=== PATIENT | male | born 1980 ===

== ENCOUNTER 2017-06-16 08:28 | Emergency (ER) | payer OTHER ==
[2017-06-16 08:42] VITALS: BP 139/84
[2017-06-16] MEDS ORDERED: HYDROcodone/ACETAMIN 5-325 MG* 1 TAB PO ONE (09:02)
--- NOTE | 2017-06-16 09:08 | UC ---
Shoulder Pain HPI - HPI Summary HPI Summary: SLIPPED AND FELL WHILE WALKING HIS KIDS TO THE BUS STOP THIS MORNING. FELL ONTO LEFT SHOULDER. HAS SEVERE PAIN AND INABILITY TO MOVE LEFT ARM AT SHOULDER. DENIES HEAD INJURY. STATES IT IS MOSTLY HIS SHOULDER BUT ALSO HAS SOME NECK PAIN. NO CARLISLE, DIZZINESS, NAUSEA, VISUAL DISTURBANCE. - History of Current Complaint Chief Complaint: UCUpperExtremity Stated Complaint: LEFT SHOULDER/NECK INJURY Time Seen by Provider: 06/16/17 08:55 Hx Obtained From: Patient Onset/Duration: Sudden Onset, Lasting Hours, Still Present Timing: Constant Severity Initially: Severe Severity Currently: Severe Location Of Pain: Is Discrete @ - LEFT SHOULDER Pain Intensity: 10 Pain Scale Used: 0-10 Numeric Character: Sharp Aggravating Factor(s): Movement Alleviating Factor(s): Nothing Related History: Dominant Hand Right - Allergies/Home Medications Allergies/Adverse Reactions: Allergies Allergy/AdvReac Type Severity Reaction Status Date / Time citric acid Allergy Facial Verified 06/16/17 08:39 Redness/Flushing Home Medications: Home Medications Acetaminophen 650 mg PO 06/16/17 [History] PMH/Surg Hx/FS Hx/Imm Hx Previously Healthy: Yes - Surgical History Surgical History: None - Family History Known Family History: Negative: Hypertension - Social History Alcohol Use: None Substance Use Type: None Smoking Status (MU): Heavy Every Day Tobacco Smoker Amount Used/How Often: 1 PPD Household Exposure Type: Cigarettes Review of Systems Constitutional: Negative Skin: Negative Respiratory: Negative Cardiovascular: Negative Gastrointestinal: Negative Motor: Decreased ROM Musculoskeletal: Arthralgia, Decreased ROM All Other Systems Reviewed And Are Negative: Yes Physical Exam Triage Information Reviewed: Yes Appearance: Well-Nourished, Pain Distress - SEVERE Vital Signs: Initial Vital Signs Temp 98.1 F 06/16/17 08:38 Pulse 101 06/16/17 08:38 Resp 16 06/16/17 08:38 BP 139/84 06/16/17 08:38 Pulse Ox 100 06/16/17 08:38 Vital Signs Reviewed: Yes Eyes: Positive: Conjunctiva Clear ENT: Positive: Hearing grossly normal Neck: Positive: Supple Respiratory: Positive: No respiratory distress, No accessory muscle use Cardiovascular: Positive: Pulses Normal Abdomen Description: Positive: Soft Musculoskeletal: Positive: No Edema, ROM Limited @ - LEFT SHOULDER, Other: - TTP LEFT SHOULDER ANTERIORLY AND AT AC JOINT Neurological: Positive: Alert Psychological: Positive: Age Appropriate Behavior Skin: Negative: rashes Diagnostics - Radiology SHOULDER XRAY Xray Interpretation: No Acute Changes Radiology Interpretation Completed By: Radiologist Shoulder Course/Dx - Differential Dx/Diagnosis Provider Diagnoses: LEFT SHOULDER SPRAIN Discharge - Sign-Out/Discharge Documenting (check all that apply): Discharge - Discharge Plan Condition: Stable Disposition: HOME Prescriptions: Naproxen [Naproxen EC] 500 mg PO BID PRN #30 tab PRN Reason: Pain Patient Education Materials: Shoulder Sprain (ED) Referrals: Bunny Krause MD [Medical Doctor] - 2 Weeks Additional Instructions: XRAY TODAY UNREMARKABLE. SLING FOR COMFORT. REST, ICE. YOUR SYMPTOMS SHOULD IMPROVE SIGNIFICANTLY OVER THE NEXT 1-2 WEEKS. IF YOU DO NOT IMPROVE EXPECTED FOLLOW-UP WITH A PCP OR ORTHO. YOU MAY BENEFIT FROM REPEAT IMAGING AT THAT TIME. BE SURE TO GO THROUGH SLOW RANGE OF MOTION AND STRETCHING EXERCISES DAILY YOU ARE ABLE TO PREVENT STIFFENING UP AND MAKING THE DISCOMFORT WORSE. CALL THE NUMBER BELOW FOR ASSISTANCE IN ESTABLISHING WITH A PCP An additional resource available to assist in finding the appropriate physician for your health care needs is [facility] ([place] [place]). You may contact them by calling [phone]. - Billing Disposition and Condition Condition: STABLE Disposition: HOME
--- NOTE | 2017-06-16 09:28 | RAD ---
Indication: LEFT shoulder pain post fall. Anterior and lateral aspect pain. Decreased range of motion. Comparison: No relevant prior exams available on the [facility] for comparison. Technique: Internal rotation AP, external rotation Grashey, scapular Y views LEFT shoulder Report: Normal acromioclavicular and glenohumeral joint alignment. No cortical disruption or suspicious trabecular irregularity to suggest fracture. Unremarkable soft tissue contours. IMPRESSION: Negative radiographic exam of the LEFT shoulder.
== END 2017-06-16 10:00 | disposition home or self-care (01) ==
LOC: UCCORT 08:28
DX: S43.402A Unspecified sprain of left shoulder joint, initial encounter (principal); W01.0XXA Fall on same level from slipping, tripping and stumbling without subsequent striking against object, initial encounter; Y93.01 Activity, walking, marching and hiking; Y92.480 Sidewalk as the place of occurrence of the external cause; F17.210 Nicotine dependence, cigarettes, uncomplicated
CPT/HCPCS: 99203; G0463